=== PATIENT | female | born 1970 | race Caucasian/White ===

== ENCOUNTER 2018-10-02 11:10 | Emergency (ER) | payer BC ==
[2018-10-02 11:41] LABS: Bilirubin Negative (Negative); Blood, Urine Small (Negative); Clarity Cloudy (Clear); Glucose, Urine (Dipstick) Negative (Negative); Leukocyte Moderate (Negative); Nitrite Negative (Negative); Protein, Urine (Dipstick) Trace mg/dL (Neg-Trace); Specific Gravity, Urine 1.015 (1.005-1.030); Urobilinogen 0.2 mg/dL (0.2-1.0); pH, Urine 6.5 (5.0-9.0)
[2018-10-02 11:47] LABS: Bacteria/HPF Rare-Few HPF (None Seen); Hyaline Casts/LPF NONE SEEN LPF (0-3 Hyaline); Squamous Epithelial 0-3 HPF (0-3); WBC/HPF 21-50 HPF (0-3)
== END 2018-10-02 11:58 | disposition home or self-care (01) ==
LOC: MADERS 11:10
DX: N76.0 Acute vaginitis (principal); N39.0 Urinary tract infection, site not specified; I10 Essential (primary) hypertension; Z79.899 Other long term (current) drug therapy
CPT/HCPCS: 81003; 81015; 99283

== ENCOUNTER 2018-12-27 21:55 | Emergency (ER) | payer BC, SELFPAY ==
[~2018-12-27 21:55] MED LIST: Iopamidol 370 76% 100 ML VIAL ONE
[2018-12-27] MEDS ORDERED: Ondansetron PF 4 MG/2 ML Vial ONE (22:26)
[2018-12-27] MEDS ORDERED: Morphine 4 MG/ML VIAL ONE (22:26)
[2018-12-27] MEDS ORDERED: Ibuprofen 800 MG TAB ONE (22:26)
[2018-12-27 22:40] LABS: Bilirubin Negative (Negative); Blood, Urine Negative (Negative); Clarity Clear (Clear); Glucose, Urine (Dipstick) Negative (Negative); Leukocyte Negative (Negative); Nitrite Negative (Negative); Protein, Urine (Dipstick) Negative (Neg-Trace); Urobilinogen 0.2 mg/dL (0.2-1.0); pH, Urine 5.5 (5.0-9.0)
[2018-12-27 23:32] LABS: ALT (SGPT) 16 U/L (8-55); AST (SGOT) 23 U/L (5-34); Albumin 3.7 g/dL (3.5-5.0); Alkaline Phosphatase 120 U/L (40-150); Anion Gap 14 mmol/L (10-20); BUN (Urea Nitrogen) 11 mg/dL (7.0-18.7); Bilirubin, Total 0.6 mg/dL (0.2-1.2); Calc. Creatinine Clearance 0 mL/min (70-130); Calcium 8.8 mg/dL (7.8-10.44); Carbon Dioxide 19 mmol/L (22-29); Chloride 107 mmol/L (98-107); Estimated GFR-MDRD 87; Globulin 3.1 g/dL (2.4-3.5); Glucose 94 mg/dL (70-105); Lipase 36 U/L (8-78); Potassium 3.3 mmol/L (3.5-5.1); Protein, Total 6.8 g/dL (6.0-8.3); Sodium 137 mmol/L (136-145)
[2018-12-27 23:37] LABS: Band 7 % (5-11); Eosinophils 1 % (0-10); Hemoglobin 13.5 g/dL (12.0-16.0); Lymphocytes 6 % (21-51); MDiff Complete? YES; Mean Corpuscular HGB CONC 33.1 g/dL (32.0-36.0); Mean Corpuscular Hemoglobin 29.7 pg (27.0-31.0); Mean Platelet Volume 9.1 fL (7.4-10.4); Monocytes 8 % (0-10); Neutrophil 78 % (42-75); Platelet Count 161 thou/uL (130-400); Platelet Morphology Comment Appears Adequate; RBC Distribution Width 11.5 % (11.5-14.5); RBC Morphology Normal; Red Blood Cell (RBC) Count 4.52 mill/uL (4.20-5.40)
[2018-12-28] MEDS ORDERED: metroNIDAZOLE 500 MG/100 ML BAG ONE ×2 (01:20→01:22)
[2018-12-28] MEDS ORDERED: Piperacillin/Tazobactam 4.5 GM VIAL ONE (01:20)
[2018-12-28] MEDS ORDERED: Sodium Chloride 0.9% 100 ML ONE (01:22)
[2018-12-28] MEDS ORDERED: Morphine 4 MG/ML VIAL ONE (01:43)
[2018-12-28] MEDS ORDERED: Acetaminophen 325 MG TAB ONE (03:23)
--- NOTE | 2018-12-28 07:38 | CT ---
CT OF ABDOMEN AND PELVIS: DATE: 12/27/2018. COMPARISON: None. HISTORY: Abdominal pain and fever. TECHNIQUE: Axial CT imaging obtained at 5 mm intervals from lung bases through pubic symphysis with IV contrast. Coronal reformatted imaging obtained. FINDINGS: The imaged lung bases appear grossly unremarkable. No free intraperitoneal air or fluid is seen. Th ere is a gastric suture line present. The hepatic parenchyma is diffusely hypodense, suggesting hepatic steatosis. The spleen is unremarka ble. The gallbladder is distended. The gallbladder measures approximately 5.4 cm in short axis dime nsion. The common bile duct appears dilated, measuring 1.2 cm. There is gas near the distal aspect of the common bile duct which likely represents gas within the duodenal diverticulum. There is a sma ll hiatal hernia. The pancreas and adrenal glands appear grossly unremarkable as do the kidneys. Streak artifact from a hip prosthesis on the right limits detailed assessment of the pelvis. No focal area of bowel inflammatory change or evidence of bowel obstruction seen. Partially imaged appendix appears grossly unremarkable. No enlarged lymph nodes are seen within the retroperitoneum or the pelvis. Mildly prominent right lo wer quadrant mesenteric lymph nodes are noted, likely reactive in nature. The osseous structures of the abdomen and pelvis demonstrate no acute findings. IMPRESSION: The gallbladder is distended and the common bile duct is dilated. Findings are suspicious for a bili yelena obstructive process. Clinical correlation is suggested via assessment of LFTs. Right upper quad rant ultrasound may be beneficial to further evaluate findings suspicious for nonspecific biliary obs truction. POS: OFF
== END 2018-12-28 04:57 | disposition short-term general hospital (02) ==
LOC: MADERS 21:55
DX: K83.8 Other specified diseases of biliary tract (principal); R50.9 Fever, unspecified; I10 Essential (primary) hypertension; Z79.899 Other long term (current) drug therapy
CPT/HCPCS: 36415; 74177; 80053; 81003; 83605; 83690; 85025; 87040; 87086; 87149; 96365; 96367; 96375; 96376; J2270; J2405; J2543; J3490; Q9967

== ENCOUNTER 2020-05-21 20:01 | Emergency (ER) | payer BC ==
[2020-05-21 20:19] LABS: Bilirubin Negative (Negative); Blood, Urine Negative (Negative); Clarity Slightly Cloudy (Clear); Glucose, Urine (Dipstick) Negative (Negative); Ketone, Urine Negative (Negative); Leukocyte Small (Negative); Nitrite Negative (Negative); Protein, Urine (Dipstick) Negative (Neg-Trace); Specific Gravity, Urine 1.025 (1.005-1.030)
[2020-05-21 20:25] LABS: Bacteria/HPF 2+ HPF (None Seen); Mucous/LPF 1+ LPF (<2+); RBC/HPF None Seen HPF (0-3)
[2020-05-21] MEDS ORDERED: Fluorescein Opthalmic Strip ONE (20:40)
[2020-05-21] MEDS ORDERED: Tetracaine 0.5% OPHTH SOLN/PF 4 ML BOT ONE (20:40)
[2020-05-21] MEDS ORDERED: Cephalexin 500 MG CAP ONE (21:47)
== END 2020-05-21 21:50 | disposition home or self-care (01) ==
LOC: MADERS 20:01
DX: N39.0 Urinary tract infection, site not specified (principal); H10.45 Other chronic allergic conjunctivitis; I10 Essential (primary) hypertension; Z79.899 Other long term (current) drug therapy
CPT/HCPCS: 81003; 81015; 99283

== ENCOUNTER 2020-11-02 14:43 | Emergency (ER) | payer BC ==
[2020-11-02 15:14] LABS: Bilirubin Negative (Negative); Blood, Urine Moderate (Negative); Glucose, Urine (Dipstick) Negative (Negative); Ketone, Urine 15 mg/dL (Negative); Leukocyte Moderate (Negative); Nitrite Positive (Negative); Protein, Urine (Dipstick) 100 mg/dL (Neg-Trace); pH, Urine 5.5 (5.0-9.0)
[2020-11-02 15:15] LABS: Bacteria/HPF 2+ HPF (None Seen); Clarity Cloudy (Clear); WBC/HPF Greater Than 50 HPF (0-3)
[2020-11-02] MEDS ORDERED: Sodium Chloride 0.9% 100 ML ONE (15:24)
[2020-11-02] MEDS ORDERED: Sodium Chloride 0.9% 2,000 ML ONE (15:24)
[2020-11-02] MEDS ORDERED: cefTRIAXone\\ROCEPHIN 2 GM VIAL ONE (15:24)
[2020-11-02] MEDS ORDERED: Ketorolac Tromethamine 30 MG/ML VIAL ONE (15:24)
[2020-11-02 15:41] LABS: ALT (SGPT) 17 U/L (8-55); AST (SGOT) 23 U/L (5-34); Albumin 3.7 g/dL (3.5-5.0); Alkaline Phosphatase 94 U/L (40-110); Anion Gap 17 mmol/L (10-20); BUN (Urea Nitrogen) 11 mg/dL (9.8-20.1); Bilirubin, Total 0.8 mg/dL (0.2-1.2); Calc. Creatinine Clearance 0 mL/min (70-130); Calcium 8.3 mg/dL (7.8-10.44); Carbon Dioxide 22 mmol/L (22-29); Chloride 100 mmol/L (98-107); Globulin 3.4 g/dL (2.4-3.5); Glucose 99 mg/dL (70-105); Protein, Total 7.1 g/dL (6.0-8.3); Sodium 136 mmol/L (136-145)
[2020-11-02 15:43] LABS: Band 1 % (5-11); Hemoglobin 14.7 g/dL (12.0-16.0); Lymphocytes 3 % (21-51); MDiff Complete? YES; Mean Corpuscular HGB CONC 32.9 g/dL (32.0-36.0); Mean Platelet Volume 7.9 fL (7.4-10.4); Monocytes 6 % (0-10); Neutrophil 84 % (42-75); Platelet Count 179 thou/uL (130-400); Platelet Morphology Comment Appears Adequate; RBC Distribution Width 10.9 % (11.5-14.5); RBC Morphology Normal; Reactive Lymphocytes 6 % (0-10); Red Blood Cell (RBC) Count 4.89 mill/uL (4.20-5.40); White Blood Cell (WBC) Count 10.3 thou/uL (4.8-10.8)
--- NOTE | 2020-11-02 15:50 | CT ---
EXAM: CT Stone Protocol PROVIDED CLINICAL HISTORY: Left flank pain COMPARISON: 12/27/2018 FINDINGS: The visualized lung bases are free of significant opacity. There is mild enlargement of the left kidney with subtle perinephric fat stranding. There is no hydro nephrosis. Evaluation of the pelvis is limited due to beam hardening artifact from right hip arthroplasty, without definite evidence for urinary tract calculi. The solid abdominal organs are suboptimally evaluated in the absence of IV contrast material but demo nstrate an otherwise unremarkable unenhanced CT appearance. 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 There is no evidence for bowel obstruction. No additional inflammatory fat stranding, free fluid or free air apparent. No evidence for appendicitis. The osseous structures demonstrate no concerning lytic or blastic lesions. Occasional atherosclerotic vascular calcifications are seen. IMPRESSION: Left perinephric fat stranding without evidence for hydronephrosis or urinary tract calculi. Correlat e with concerns for pyelonephritis.
[2020-11-02] MEDS ORDERED: Acetaminophen 500 MG TAB ONE (16:02)
== END 2020-11-02 16:50 | disposition home or self-care (01) ==
LOC: MADERS 14:43
DX: N10 Acute pyelonephritis (principal); I10 Essential (primary) hypertension; B19.20 Unspecified viral hepatitis C without hepatic coma; Z79.899 Other long term (current) drug therapy
CPT/HCPCS: 74176; 80053; 81003; 81015; 83605; 85025; 87040; 87077; 87086; 87186; 94760; 96365; 96375; J0696; J1885; J3490; J7050

== ENCOUNTER 2021-11-02 12:51 | Emergency (ER) | payer OTHER, BC | END 2021-11-02 13:55 | disposition home or self-care (01) | LOC: MADERS 12:51 | DX: S86.911A Strain of unspecified muscle(s) and tendon(s) at lower leg level, right leg, initial encounter (principal); I10 Essential (primary) hypertension; V48.0XXA Car driver injured in noncollision transport accident in nontraffic accident, initial encounter; Y92.410 Unspecified street and highway as the place of occurrence of the external cause; Z87.19 Personal history of other diseases of the digestive system; Z79.899 Other long term (current) drug therapy ==

== ENCOUNTER 2022-11-09 21:08 | Emergency (ER) | payer BC, OTHER ==
[2022-11-09] MEDS ORDERED: Benzonatate 100 MG CAP ONE (21:42)
[2022-11-09] MEDS ORDERED: guaiFENesin/Codeine Phosphate 100 mg/10 mg 5 ml UD Cup ONE ×2 (21:42)
[2022-11-09] MEDS ORDERED: Ipratropium/Albuterol 3 ML NEB ONE (21:42)
== END 2022-11-09 23:04 | disposition home or self-care (01) ==
LOC: MADERS 21:08
DX: J20.9 Acute bronchitis, unspecified (principal); I10 Essential (primary) hypertension; J45.909 Unspecified asthma, uncomplicated
CPT/HCPCS: J7620

== ENCOUNTER 2022-11-11 19:26 | Emergency (ER) | payer OTHER ==
[2022-11-11] MEDS ORDERED: Fentanyl 100 MCG/2 ML VIAL ONE (19:52)
[2022-11-11 20:09] LABS: #Basophils 0.3 thou/uL (0.0-0.2); #Eosinphils 0.3 thou/uL (0.0-0.7); #Lymphocytes 1.5 thou/uL (1.20-3.40); #Neutrophils 10.9 thou/uL (1.40-6.50); %Basophils 2.4 % (0.0-1.0); %Lymphocytes 10.7 % (21.0-51.0); %Monocytes 7.4 % (0.0-10.0); %Neutrophils 77.5 % (42.0-75.0); Hemoglobin 13.7 g/dL (12.0-16.0); Mean Corpuscular HGB CONC 32.4 g/dL (32.0-36.0); Mean Corpuscular Hemoglobin 26.7 pg (27.0-31.0); Mean Corpuscular Volume 82.3 fl (78.0-98.0); Mean Platelet Volume 7.4 fL (7.4-10.4); Platelet Count 387 10x3/uL (130-400); RBC Distribution Width 12.9 % (11.5-14.5); Red Blood Cell (RBC) Count 5.13 mill/uL (4.20-5.40)
[2022-11-11 20:23] LABS: ALT (SGPT) 22 U/L (8-55); AST (SGOT) 24 U/L (5-34); Albumin 4.2 g/dL (3.5-5.0); Alkaline Phosphatase 100 U/L (40-110); Anion Gap 16 mmol/L (10-20); BUN (Urea Nitrogen) 21 mg/dL (9.8-20.1); Bilirubin, Total 0.3 mg/dL (0.2-1.2); Calc. Creatinine Clearance 0 mL/min (70-130); Calcium 9.3 mg/dL (7.8-10.44); Carbon Dioxide 24 mmol/L (22-29); Chloride 105 mmol/L (98-107); Estimated GFR 95; Globulin 3.8 g/dL (2.4-3.5); Glucose 89 mg/dL (70-105); Potassium 3.9 mmol/L (3.5-5.1); Sodium 141 mmol/L (136-145)
[2022-11-11] MEDS ORDERED: Orphenadrine Citrate 60 MG/2 ML VIAL ONE (20:25)
[2022-11-11] MEDS ORDERED: Ketorolac Tromethamine 30 MG/ML VIAL ONE (21:45)
== END 2022-11-11 22:25 | disposition home or self-care (01) ==
LOC: MADERS 19:26
DX: S20.211A Contusion of right front wall of thorax, initial encounter (principal); S60.811A Abrasion of right wrist, initial encounter; M25.551 Pain in right hip; I10 Essential (primary) hypertension; Z79.899 Other long term (current) drug therapy; Y04.0XXA Assault by unarmed brawl or fight, initial encounter
CPT/HCPCS: 72192; 80053; 85025; 96374; 96375; J1885; J2360; J3010

== ENCOUNTER 2023-05-12 23:08 | Emergency (ER) | payer OTHER ==
[2023-05-12] MEDS ORDERED: Ketorolac Tromethamine 30 MG/ML VIAL ONE (23:55)
[2023-05-12] MEDS ORDERED: Benzonatate 100 MG CAP ONE (23:55)
== END 2023-05-13 00:15 | disposition home or self-care (01) ==
LOC: MADERS 23:08
DX: R51.9 Headache, unspecified (principal); R05.9 Cough, unspecified; I10 Essential (primary) hypertension; Z79.899 Other long term (current) drug therapy
CPT/HCPCS: 96372; 99283; J1885

== ENCOUNTER 2024-07-20 07:40 | Emergency (ER) | payer BC, OTHER ==
[2024-07-20] MEDS ORDERED: predniSONE 20 MG TAB ONE (08:11)
[2024-07-20] MEDS ORDERED: Ipratropium/Albuterol 3 ML NEB ONE (08:11)
== END 2024-07-20 09:13 | disposition home or self-care (01) ==
LOC: MADERS 07:40
DX: J20.9 Acute bronchitis, unspecified (principal); I10 Essential (primary) hypertension
CPT/HCPCS: 71046; J7512; J7620

== ENCOUNTER 2025-09-03 16:55 | Emergency (ER) | payer MEDICARE ==
[2025-09-03] MEDS ORDERED: Acetaminophen 500 MG TAB ONE (17:23)
[2025-09-03] MEDS ORDERED: Lisinopril 10 MG TAB ONE (17:23)
[2025-09-03] MEDS ORDERED: Dexamethasone 10 MG/ML VIAL ONE (17:24)
[2025-09-03 18:05] LABS: Hematocrit 45.3 % (36.0-47.0); Hemoglobin 14.0 g/dL (12.0-16.0); MDiff Complete? YES; Manual Diff?? YES; Mean Corpuscular Hemoglobin 28.4 pg (27.0-31.0); Mean Corpuscular Volume 92.0 fl (78.0-98.0); Platelet Count 144 10x3/uL (130-400); Red Blood Cell (RBC) Count 4.92 mill/uL (4.20-5.40); White Blood Cell (WBC) Count 6.8 10x3/uL (4.8-10.8)
[2025-09-03 18:08] LABS: ALT (SGPT) 27 U/L (Less than 34); AST (SGOT) 54 U/L (11-34); Albumin 3.2 g/dL (3.1-4.5); Alkaline Phosphatase 94 U/L (40-110); Anion Gap 17 mmol/L (10-20); BUN (Urea Nitrogen) 8 mg/dL (9.8-20.1); Bilirubin, Total 0.3 mg/dL (0.3-1.2); Calc. Creatinine Clearance 0 mL/min (70-130); Calcium 7.7 mg/dL (7.8-10.44); Carbon Dioxide 28 mmol/L (22-29); Chloride 96 mmol/L (98-107); Globulin 4.1 g/dL (2.4-3.5); Glucose 98 mg/dL (70-105); Lipase 39 U/L (8-78); Potassium 3.2 mmol/L (3.5-5.1); Sodium 138 mmol/L (136-145)
[2025-09-03 18:12] LABS: Platelet Adequacy Comment Appears Adequate
[2025-09-03] MEDS ORDERED: Potassium Bicarbonate/Cit Ac 20 MEQ TAB ONE (18:22)
== END 2025-09-03 18:25 | disposition home or self-care (01) ==
LOC: MADERS 16:55
DX: B34.9 Viral infection, unspecified (principal); R11.2 Nausea with vomiting, unspecified; I10 Essential (primary) hypertension
CPT/HCPCS: 80053; 83690; 85025; J1100; Q0162; 36415